=== PATIENT | female | born 1980 | race Caucasian/White ===

== ENCOUNTER 2017-04-26 12:25 | Outpatient (CLI) | payer OTHER ==
[2017-04-26 12:55] VITALS: BP 119/78
[2017-04-26] MEDS ORDERED: LACTATED RINGERS 500 ML IV ONE (14:00)
[2017-04-26 14:41] LABS: Bacteria,Urine 1+ /HPF (Negative); Bilirubin,Urine NEG (Negative); Blood,Urine NEG (Negative); Ketones,Urine NEG (Negative); Leukocyte Esterase,Urine NEG (Negative); Nitrite,Urine NEG (Negative); Protein,Urine <15 mg/dL mg/dL (Negative); Urobilinogen,Urine < 2.0 mg/dL (<2.0)
[2017-04-26] MEDS ORDERED: BRETHINE SUB-Q ONE (18:18)
== END 2017-04-26 18:53 | disposition home or self-care (01) ==
LOC: TRG 12:25
PROVIDERS: ATTEND Obstetrics & Gynecology
DX: O09.523 Supervision of elderly multigravida, third trimester (principal); O47.03 False labor before 37 completed weeks of gestation, third trimester; Z3A.34 34 weeks gestation of pregnancy
CPT/HCPCS: 59025; 81001; 96360; 96361; 96372; J3105; J7120

== ENCOUNTER 2017-05-18 04:06 | Inpatient (IN) | payer OTHER ==
[2017-05-18] MEDS ORDERED: STADOL IV PRN (04:57)
[2017-05-18] MEDS ORDERED: SUBLIMAZE IV PRN (04:58)
[2017-05-18] MEDS ORDERED: LACTATED RINGERS 1,000 ML IV SCH (04:59)
[2017-05-18] MEDS ORDERED: POLYCILLIN/NS 2 GM/100 ML 2 GM/100 ML BAG IV ONE (05:00)
[2017-05-18 06:04] LABS: Hematocrit 38.1 % (30.3-42.9); Hemoglobin 12.7 gm/dl (10.1-14.3); Mean Corpuscular HGB Conc 33 % (30-34); Mean Corpuscular Hemoglobin 32 pg (28-32); Mean Corpuscular Volume 96 fl (79-97); Platelet Count 193 K/mm3 (140-440); Red Blood Count 3.97 M/mm3 (3.65-5.03); Red Cell Distribution Width 13.4 % (13.2-15.2)
--- NOTE | 2017-05-18 06:22 | History and Physical Report ---
History of Present Illness Date of examination: 05/18/17 Date of admission: 05/18/17 05:05 Chief complaint: SROM History of present illness: 37-year-old at 37+ weeks presents with rupture of membrane, she is a [employer] patient. course complicated by GDM A1 She is currently ~ 3 cm per RN exam Past History Past Medical History: no pertinent history Past Surgical History: no surgical history [employer] History: denies: chlamydia, gonorrhea, hepatitis B, hepatitis C, HIV, syphilis, trichomonas Social history: full code. denies: smoking, IV drug use - Obstetrical History Expected Date of Delivery: 06/04/17 Actual Gestation: 37 Week(s) 4 Day(s) : 4 Para: 3 Medications and Allergies Allergies Allergy/AdvReac Type Severity Reaction Status Date / Time No Known Allergies Allergy Verified 04/26/17 12:55 Home Medications Medication Instructions Recorded Confirmed Last Taken Type LORazepam [Ativan] 1 mg PO QHS #7 tab 07/18/14 Unknown Rx traMADol [Ultram 50 MG tab] 50 mg PO Q6HR PRN #16 tablet 07/18/14 Unknown Rx Active Meds: Active Medications Butorphanol Tartrate (Stadol) 2 mg IV Q2H PRN PRN Reason: Labor Pain Fentanyl (Sublimaze) 100 mcg IV Q2HR PRN PRN Reason: Pain Lactated Ringer's (Lactated Ringers) 1,000 mls @ 125 mls/hr IV DIRECT JJ Ampicillin Sodium (Polycillin/Ns 1 Gm/50 Ml) 1 gm in 50 mls @ 100 mls/hr IV Q4H JJ PRN Reason: Protocol Review of Systems Constitutional: no fever, no chills, no fatigue, no weakness Cardiovascular: no chest pain, no orthopnea, no syncope, no lightheadedness, no shortness of breath, no dyspnea on exertion, no paroxysmal nocturnal dyspnea, no high blood pressure Respiratory: no cough, no cough with sputum, no shortness of breath, no dyspnea on exertion Gastrointestinal: no nausea, no vomiting, no diarrhea Genitourinary: leakage of fluid, contractions, no vaginal bleeding, no vaginal discharge - Vital Signs Vital signs: Vital Signs Pulse BP 80 117/73 05/18/17 04:23 05/18/17 04:23 Temp Pulse Resp BP Pulse Ox 98.7 F 78 16 117/63 97 05/18/17 04:47 05/18/17 06:18 05/18/17 04:47 05/18/17 04:47 05/18/17 06:18 - Physical Exam Cardiovascular: Regular rate, Normal S1, Normal S2 Lungs: Positive: Clear to auscultation, Normal air movement Abdomen: Positive: normal appearance, soft. Negative: distention, tenderness, guarding, rigidity Uterus: Positive: enlarged (EFW ~ 3500). Negative: tender Extremities: Positive: normal - Obstetrical FHR: category 1 Cervical Dilatation: 3 Results Result Diagrams: 05/18/17 05:28 All other labs normal. Assessment and Plan A: 27-year-old at 37+4 weeks presents with rupture of membranes -Category 1 tracing P: -Admit -Routine labs -Epidural when necessary -Anticipate normal vaginal delivery - Patient Problems (1) 37 weeks gestation of Current Visit: Yes Status: Acute (2) Spontaneous rupture of amniotic membranes Current Visit: Yes Status: Acute
[2017-05-18] MEDS ORDERED: BRETHINE IVP PRN (06:23)
[2017-05-18] MEDS ORDERED: ZOFRAN IV PRN (06:23)
[2017-05-18] MEDS ORDERED: PHENERGAN PO PRN (06:23)
[2017-05-18] MEDS ORDERED: MINERAL OIL PO PRN (06:23)
[2017-05-18] MEDS ORDERED: BRETHINE SUB-Q PRN (06:23)
[2017-05-18] MEDS ORDERED: XYLOCAINE 2% INFILTRATI ONE (06:23)
[2017-05-18] MEDS ORDERED: ePHEDrine SULFATE IV PRN (06:23)
[2017-05-18] MEDS ORDERED: TYLENOL PO PRN ×2 (06:25→14:39)
[2017-05-18] MEDS ORDERED: D50W (25GM) Syringe IV PRN (06:26)
[2017-05-18] MEDS: LACTATED RINGERS 1,000 ML IV SCH ×2 (06:49→12:15)
[2017-05-18] MEDS ORDERED: PITOCin/NS 30 UNIT/500ML 30 UNITS/500 ML BAG IV SCH ×2 (07:00)
[2017-05-18] MEDS ORDERED: PITOCin/NS 20 UNIT/1000ML DRIP 20 UNITS/1,000 ML BAG IV SCH (07:00)
--- NOTE | 2017-05-18 08:54 | Event Note ---
Date: 05/18/17 S: Feeling a few UC's O: VE /-2 SROM at 0330 A: IUP @ 37 + weeks, SROM P: Expect
[2017-05-18] MEDS ORDERED: POLYCILLIN/NS 1 GM/50 ML 1 GM/50 ML BAG IV SCH ×2 (09:00→11:00)
[2017-05-18] MEDS ORDERED: NORCO 5/325 PO PRN (14:39)
[2017-05-18] MEDS ORDERED: LANSINOH TP PRN (14:39)
--- NOTE | 2017-05-18 14:44 | Procedure Note ---
OB Delivery Note - Delivery Date of Delivery: 05/18/17 Surgeon: RD ESPINAL Estimated blood loss: 100cc - Vaginal Delivery presentation: vertex Delivery position: OA Delivery induction: none Delivery augmentation: pitocin Delivery monitor: external FHT, external uterine Route of delivery: Delivery placenta: spontaneous Delivery cord: 3 umbilical vessels Episiotomy: none Delivery laceration: none Anesthesia: intravenous Delivery comments: of a viable male 6#1oz @1419 on 05/18/2017 over intact perineum. Placenta delivered 3VCI. FF @ U-2. lochia small. Mother and baby doing well. - Infant A at 1 minute: 8 at 5 minutes: 9 Infant Gender: Male (6#1oz)
[2017-05-18] MEDS ORDERED: SODIUM CHLORIDE FLUSH SYRINGE 10 ML IV NR (15:00)
[2017-05-18] MEDS: MOTRIN PO SCH ×2 (18:39→23:17)
[2017-05-19 02:57] LABS: Hematocrit 31.9 % (30.3-42.9); Hemoglobin 10.7 gm/dl (10.1-14.3)
[2017-05-19] MEDS: MOTRIN PO SCH ×5 (05:27→23:16)
--- NOTE | 2017-05-19 11:01 | Progress Note ---
Assessment and Plan O: BG's WNL, GBS+ A: , Stable P: Continue routine care, plan discharge for tomorrow morning. Subjective - Subjective Date of service: 05/19/17 Principal diagnosis: Patient reports: appetite normal, voiding normally, pain well controlled, ambulating normally [place]: doing well, nursing well Objective - Vital Signs Latest vital signs: Vital Signs Temp Pulse Resp BP BP Pulse Ox 05/19/17 09:17 98 F 91 H 18 120/77 05/19/17 04:30 98.6 F 69 18 114/78 05/19/17 00:30 98.6 F 76 18 111/64 05/18/17 20:00 98.6 F 66 16 121/71 05/18/17 16:20 98.8 F 80 20 109/58 05/18/17 16:04 77 113/75 05/18/17 15:34 88 93 05/18/17 15:33 80 96 05/18/17 15:28 79 98 05/18/17 15:23 87 97 05/18/17 15:19 83 123/71 05/18/17 15:18 89 97 05/18/17 15:15 62 94 05/18/17 15:13 84 95 05/18/17 15:07 84 93 05/18/17 15:03 74 96 05/18/17 14:58 78 96 05/18/17 14:53 77 97 05/18/17 14:48 82 120/64 95 05/18/17 14:20 118 H 140/87 05/18/17 13:49 86 122/67 05/18/17 13:20 75 126/67 05/18/17 13:05 93 H 109/68 05/18/17 11:49 83 117/75 05/18/17 11:19 88 121/64 Intake and Output 05/18/17 05/19/17 05/19/17 23:59 07:59 15:59 Intake Total 300 550 Output Total 200 Balance 100 550 Intake: Oral 250 Intake, Free Water 300 300 Output: Urine 200 Void 200 Other: Total, Intake Amount 250 Total, Output Amount 200 # Voids Void 1 - Exam Breasts: Present: normal Cardiovascular: Present: Regular rate Lungs: Present: Clear to auscultation Abdomen: Present: normal appearance, soft Vulva: both: normal Uterus: Present: fundal height below umbilicus Extremities: Present: normal Deep Tendon Reflex Grade: Normal +2
--- NOTE | 2017-05-19 11:04 | Discharge Summary ---
Providers - Providers Date of Admission: 05/18/17 05:05 Date of discharge: 05/20/17 Attending physician: RADHA RIOJAS MD Primary care physician: RADHA RIOJAS MD Hospitalization Reason for admission: active labor Delivery: Episiotomy: none Laceration: none Other procedures: none complications: none Discharge diagnosis: IUP at term delivered [place] baby: male Condition at discharge: Good Disposition: DC-01 TO HOME OR SELFCARE Plan - Provider Discharge Summary Activity: routine, no sex for 6 weeks, no heavy lifting 4 weeks, no strenuous exercise Diet: routine Instructions: routine Additional instructions: [] Smoking cessation referral if applicable(refer to patient education folder for contact #) [] Refer to [facility] Booklet Call your doctor immediately for: * Fever > 100.5 * Heavy vaginal bleeding ( >1 pad per hour) * Severe persistent headache * Shortness of breath * Reddened, hot, painful area to leg or breast * Drainage or odor from incision. * Keep incision clean and dry at all times and follow doctor's instructions regarding bathing/showering - Follow up plan Follow up: [facility] [Provider Group] - 6 Weeks
[2017-05-20] MEDS: MOTRIN PO SCH (05:16)
[2017-05-20 12:47] VITALS: BP 115/64
== END 2017-05-20 13:20 | disposition home or self-care (01) | DRG 775 ==
LOC: TRG 04:06 → LD 05:05 → OB 16:55
PROVIDERS: ADMIT Obstetrics & Gynecology; ATTEND Obstetrics & Gynecology
PROC: 10E0XZZ Delivery of Products of Conception, External Approach (ICD-10-PCS; principal; 2017-05-18)
DX: O99.824 Streptococcus B carrier state complicating childbirth (principal); Z3A.37 37 weeks gestation of pregnancy; Z37.0 Single live birth
CPT/HCPCS: 36415; 82962; 85014; 85018; 85027; 86592; 86850; 86900; 86901; J0290; J0595; J2590; J7120